=== PATIENT | male | born 1970 | race Caucasian/White ===

== ENCOUNTER 2016-10-11 16:56 | Observation (INO) | payer SELFPAY ==
[~2016-10-11] VITALS: Ht 180.3 cm; Wt 140.6 kg
--- NOTE | ~2016-10-11 | CATH ---
Cardiac Diagnostic + PCI Report Demographics Patient Name CRISTIANA Zhou Gender Male Date of 1970 Age 46 year(s) Patient Number [id number] Date of Study 10/12/2016 Visit Number [id number] Room Number G6[address] [place] [id number] Ht 180.34 cm Wt 140.6 kg Referring Purvi Reyesa Beronica CATALAN Primary Physician Physician Performing Jaimee Secondary Physician Physician Kenya ARREGUIN Diagnostic Jaimee Assisting Physician Physician Kenya ARREGUIN Interventional Jaimee Physician Gearman Physician Kenya ARREGUIN Findings and Conclusions Diagnostic Findings and Conclusion LVEDP 18 Stent in PDA does look hazy but with ASIF 3 flow.Stent in PDA jails the ostium of PLB allowing wires to cross but not balloons. Just beyond ostial PLB 70% with ASIF 3 flow.This is felt to be the culprit lesion.After several attempts including changing to AL 0.75 and adding guideliner was unsuccessful.Since distal flow was TIMI3 stopped procedure there. Diagnostic Recommendations PCI to PL Interventional Findings and Conclusion Attemped PCI. Only Luge wire crossed twice into PLB. The ostial PDA stent seem to have jailed the PLB ostium. Can not cross a 1.25mm balloon with AL 0.75 6F guide and guidliner. Procedure stopped due to radiation dose Interventional Recommendations Medication therapy Procedure Description The patient was brought to the diagnostic cardiac catheterization-EP laboratory in the fasting, non-sedated state. Informed consent was obtained in the written and verbal form after the risks and benefits were explained. The patient had no further questions and agreed to proceed. The planned puncture-incision site(s) were shaved and prepped with ChloraPrep and draped in the usual sterile manner. Conscious sedation, supplemental oxygen, and pain control medications were delivered by a registered nurse under physician guidance. Surface ECG rhythm, blood pressure measurement, and pulse oximetry were monitored throughout the procedure. Arterial access. The access site was infiltrated with lidocaine. The vessel was entered with the Seldinger technique. A sheath was advanced into the vessel and used for catheter placement. Selective left coronary angiography. A catheter was advanced into the left coronary vessel ostium under Fluoroscopic guidance. Contrast was injected by hand. Images were obtained in multiple projections. Selective right coronary angiography. A catheter was advanced into the right coronary vessel ostium under fluoroscopic guidance. Contrast was injected by hand. Images were obtained in multiple projections. Left heart catheterization. A catheter was advanced across the aortic valve to the left ventricle under fluoroscopic guidance. Resting hemodynamics were obtained. Angioplasty: A guiding catheter was used to intubate the vessel. A 0.14 wire was used to cross the lesion. A balloon was unable to cross the lesion. Arterial artery hemostasis was achieved. The patient was transferred to a regular nursing floor via cart accompanied by a nurse. The patient left the laboratory in stable condition. Diagnostic Cath Status: Urgent Interventional Cath Status: Urgent Procedure Procedure Type Diagnostic procedure:Angiography:, Coronary Angios w/[facility] PCI procedure:PTCA:, Attempted Indications: Non-ST elevation WV. The procedure was explained in detail to the patient. Risks, complications and alternative treatments were reviewed. Written consent was obtained. Medications Reviewed with Patient prior to Procedure. Angiographic Findings Dominance: Right Cardiac Arteries and Lesion Findings LMCA: Moderate ectasia LAD: LAD proximal moderate ectasia. type 3 LAD, Diag1 and 2 have mild diffuse disease. LCx: Mid diffuse disease RCA: RCA dominant, moderately ectasia proximially with multiple 30-40% lesions though out. PL moderate ectasia with ostial proximal lesion 70%. PDA ostial/proximal mild lesion stent seems to be patent.There is a previous stent on R PDA Ostial showing wide patency. Lesion on 1st RPL: Ostial.70% stenosis reduced to 70%. Pre procedure ASIF III flow was noted. Post Procedure ASIF III flow was present. The guidewire cross was successful.A good run off was present.The lesion was diagnosed as a high risk lesion.Culprit lesion.Bifurcation lesion. Devices used - Luge Wire .014 x 182. Number of passes: 1. - Whisper Wire .014 x 190. Number of passes: 1. - Fielder XT 190 cm. Number of passes: 1. - Luge Wire .014 x 182. Number of passes: 1. Lesion on Mid RCA: 40% stenosis . Lesion on Prox RCA: Ostial.40% stenosis . Ramus: Mild diffuse disease Coronary Tree Procedure Data Procedure Date Date: 10/12/2016Start: 10:23 AMEnd: 12:08 PM Entry Locations - Retrograde Percutaneous access was performed through the Right Radial artery (Primary location). A 6 Fr sheath was inserted. Unsuccessful closure attempt was performed using: an R band. Hemostasis was successfully obtained using Mechanical Compression. Closure Comments: R) band applied by Molly. 10 ml of air in band. Procedure Medications Order and Administration + + + + + !Time !Medication !Dosage !Route ! + + + + + !10/12/2016 !Fentanyl !50 mcg !I.V. ! !10:20 AM ! ! ! ! + + + + + 10/12/2016 !Versed !1 mg !I.V. ! !10:23 AM ! ! ! ! + + + + 10/12/2016 !AMK Radial Cocktail: Nitroglycerin ! !I.A. ! !10:28 AM !100mcg, Verapamil 3 mg, Lidocaine ! ! ! ! !40mg (ACC_3) ! ! ! + + + + + !10/12/2016 !Oxygen !2 l/min !NC ! !10:32 AM ! ! ! ! + + + + + 10/12/2016 !Versed !1 mg !I.V. ! !10:33 AM ! ! ! ! + + + + 10/12/2016 !Heparin (ACC_3) !5000 units !I.V. bolus! !10:59 AM ! ! ! ! + + + + 10/12/2016 !Fentanyl !50 mcg !I.V. ! !11:09 AM ! ! ! ! + + + + 10/12/2016 !Heparin (ACC_3) !2000 units !I.V. bolus! !11:12 AM ! ! ! ! + + + + 10/12/2016 !Integrilin (ACC_7) !22.6 mg !I.V. bolus! !11:14 AM ! ! ! ! + + + + 10/12/2016 !Versed !1 mg !I.V. ! !11:20 AM ! ! ! ! + + + + 10/12/2016 !Fentanyl !25 mcg !I.V. ! !11:25 AM ! ! ! ! + + + + 10/12/2016 !Integrilin (ACC_7) !22.6 mg !I.V. bolus! !11:26 AM ! ! ! ! + + + + + 10/12/2016 !Fentanyl !50 mcg !I.V. ! !11:30 AM ! ! ! ! + + + + + !10/12/2016 !Versed !1 mg !I.V. ! !11:35 AM ! ! ! ! + + + + + !10/12/2016 !Versed !1 mg !I.V. ! !11:36 AM ! ! ! ! + + + + + !10/12/2016 !Oxygen !4 l/min !NC ! !11:38 AM ! ! ! ! + + + + + !10/12/2016 !Heparin (ACC_3) ! !I.V. drip ! !11:43 AM ! ! ! ! + + + + + !10/12/2016 !Fentanyl !25 mcg !I.V. ! !11:44 AM ! ! ! ! + + + + + !10/12/2016 !Fentanyl !25 mcg !I.V. ! !11:46 AM ! ! ! ! + + + + + !10/12/2016 !Integrilin (ACC_7) !2 !I.V. drip ! !12:01 PM ! !mcg/kg/min ! ! + + + + + Devices Used - A6 Fr. BS JR 4 Diag. Catheterwas used for:Right coronary angiography. - A6 Fr. BS JL 3.5 Diag. Catheterwas used for:Left coronary angiography. - A6 Fr. RBU 4.0 Guide Catheterwas used for:RCA Intervention. - A6 Fr. AL .75 JJ Guide Catheterwas used for:RCA Intervention. - A6 Fr. Guidlinerwas used for:RCA Intervention. Contrast Material - Isovue [id number] ml Fluoroscopy Time: Diagnostic: 37:48 minutes. Total: 37:48 minutes. Fluoroscopy Dose: Diagnostic: 5935 mGy. Total: 5935 mGy. Estimated Blood Loss: 50 ml. Additional [facility] PCI Information PCI Indication:PCI for high risk Non-STEMI or unstable angina. Medical History Performed Procedures and Imaging Results - No [facility] stress or imaging studies were performed. Allergies - No known allergies. Risk Factors The patient risk factors include:prior PCI on 05/10/2016;obesity, physical activity, treated hypercholesterolemia, treated hypertension, family history of premature CAD, last creatinine: 1.2 mg/dl, creatinine clearance: 151.34 ml/min, dyslipidemia, Current/Recent(w/in 1 year) tobacco use and prior WV . Admission Data Admission Date: 10/11/2016 Admission Time: 04:56 PM Admit Source: Transfer [facility] facility Insurance Payors: None. Admission Medications + +------+------+ + + + + !Medication !Dosage!Times !Last !Last !Administered !Comments ! ! ! !Per !Delivery !Delivery ! ! ! ! ! !Day !Date !Time ! ! ! + +------+------+ + + + + !Aspirin ! ! ! ! ! ! ! !(any) ! ! ! ! ! ! ! + +------+------+ + + + + !ROBERTO ! ! ! ! ! ! ! !Inhibitor ! ! ! ! ! ! ! !(any) ! ! ! ! ! ! ! + +------+------+ + + + + !Beta Manoj! ! ! ! ! ! ! !(any) ! ! ! ! ! ! ! + +------+------+ + + + + !Clopidogrel ! ! ! ! ! ! ! + +------+------+ + + + + !Ticagrelor ! ! ! ! ! ! ! + +------+------+ + + + + Clinical Evaluation Leading to Procedure - The patient's CAD presentation was assessed as: Non-STEMI. - The patient's anginal syndrome during the past two weeks was assessed as: Class IV according to the [place] Cardiovascular Society Classification System (CCS). Anti-anginal medications were prescribed during the past two weeks. The medications are: Beta Blockers and Other. [facility] . Ejection Fraction - 05/01/2019 - Method: Echocardiography. EF%: 50. Hemodynamics Condition: Rest O2 Consumption: Estimated: 305.39Heart Rate: 70 bpm Pressures (mmHg) +-----+ + !Site !Pressure ! +-----+ + !LV !124/12 ,15 ! +-----+ + !LV !173/8 ,165 ! +-----+ + !LV !145/7 ,18 ! +-----+ + !AO !134/91 (112) ! +-----+ + !LV !133/12 ,28 ! +-----+ + !AO !121/83 (101) ! +-----+ + Valve Gradients and Areas + +---------+---------+---------+ +---------+ + !Valve !Peak !Mean !Area !Index !Flow !Source ! + +---------+---------+---------+ +---------+ + !Aortic !0 !0 ! ! ! ! ! + +---------+---------+---------+ +---------+ + !Aortic !0 !0 ! ! ! ! ! + +---------+---------+---------+ +---------+ + Shunts Oxygen Values O2 Capacity 205.36 O2 Consumption 305.39 Discharge Data Discharge Date: 10/12/2016 Hospital Status: Inpatient Signatures dtt: Kenya Hermosillo dtd: 10/12/16 1023 Physician Self Edit
--- NOTE | ~2016-10-11 | CON ---
PATIENT'S NAME: SRIKANTH ZENDEJAS [facility] AGE: 46 Y [address] ROOM: [address] [address] [facility] ADMIT DATE: 10/11/2016 Consultation DISCHARGE DATE: FAMILY PHYSICIAN: JASMINA MOHAMUD PA-C ATTENDING PHYSICIAN: Kenya Hermosillo HISTORY OF PRESENT ILLNESS: Srikanth Zendejas is a 46-year-old male patient from [place], admitted with a [id number] elevation MO. He was working when the pain started and radiating down to the left arm. He went home 10 minutes later and took a nitroglycerin and eventually went to the hospital in another 10 minutes or so. The nitroglycerin seemed to relieve the pain to some extent, and the morphine sulfate given in the hospital seemed to completely get rid of the pain and he is currently pain-free. His troponin, however, was elevated and his EKG is negative for acute changes. The patient has history of coronary artery disease and stenting of his PDA in April 2016. He has gone home and done reasonably well, and he has been staying with his medications and stopped completely smoking as well. He is in functional class II with no paroxysmal nocturnal dyspnea or orthopnea. He denies lightheadedness, dizziness, syncope, or presyncope. He has noticed some ankle swelling, and his cholesterol is known to be elevated. There is a family history of premature coronary artery disease. MEDICATIONS: 1. Tramadol 50 mg 1-2 q.i.d. p.r.n. 2. Carvedilol 6.25 b.i.d. 3. Atorvastatin 80 mg a day. 4. Clopidogrel 75 mg a day. 5. Lisinopril 25 mg twice a day. 6. Aspirin 81 mg a day. ALLERGIES: NO KNOWN DRUG ALLERGIES. PAST MEDICAL HISTORY: 1. Right groin abscess after his cardiac catheterization long time back. 2. Fracture of second lumbar vertebrae 15 years ago. 3. Gout. SOCIAL HISTORY: The patient is . He denies abusing alcohol. He has not smoked since his last hospital procedure in April 2016. He denies recreational drug use. His appetite and weight are stable. Sleep is fair. PATIENT'S NAME: SRIKANTH ZENDEJAS [facility] AGE: 46 Y [address] ROOM: [place] [address] LOCATION: [facility]U ADMIT DATE: 10/11/2016 Consultation DISCHARGE DATE: FAMILY PHYSICIAN: JASMINA MOHAMUD PA-C ATTENDING PHYSICIAN: Kenya Hermosillo FAMILY HISTORY: Positive for premature coronary artery disease in his brother, who had an MO at the age of 38. REVIEW OF SYSTEMS: 1. Migraine headaches. 2. Corrective lenses. 3. Polyps in the colon. PHYSICAL EXAMINATION: VITAL SIGNS: His blood pressure is in the 140s/80s, heart rate is 70s and regular, respiration is 18, and afebrile. HEENT: Normal. NECK: Supple with no JVD, thyromegaly, lymphadenopathy, or carotid bruit. HEART: PMI is not well located. First and second heart sounds are regular. There are no added sounds or murmurs. CHEST: Clear to auscultation. ABDOMEN: Soft and nontender. Bowel sounds are normally present. EXTREMITIES: Reveal no edema. ASSESSMENT: A 46-year-old male patient with known coronary artery disease, status post percutaneous coronary intervention to the ostium of the PDA. He had a 46% lesion in his PLB, which was ASIF-3 governed. He would probably need those lesions evaluated again with a cardiac catheterization. Given his close proximity to the last stent placement, we will proceed ahead and get has some additional information including his liver tests, LFTs, CPK, homocystine level, or any unusual activities. RECOMMENDATION: He will be kept n.p.o. after midnight and do a cardiac catheterization in the morning. Again, I appreciate this opportunity to participate in the care of Mr. Zendejas. MD CATHI LIGHT/isaak PATIENT'S NAME: SRIKANTH ZENDEJAS [facility] AGE: 46 Y [address] ROOM: [place] [address] LOCATION: [facility]PCU ADMIT DATE: 10/11/2016 Consultation DISCHARGE DATE: FAMILY PHYSICIAN: JASMINA MOHAMUD PA-C ATTENDING PHYSICIAN: Kenya Hermosillo /[id number] d: 10/11/162315 t: 10/19/16 1030, CONSULTATION REPORT
[~2016-10-11 16:56] MED LIST: ADVIL200 MG; ASPIRIN BUFFER325 MG PO; CATAPRES0.1 MG PO; COREG6.25 MG PO; HYDROCODON-ACE1 EAC4 PO; LIPITOR80 MG PO; LISINOPRIL-HCT1 EAC2 PO; LOPRESSOR25 MG PO; LOPRESSOR50 MG; NITROSTAT0.4 MG SL; NORVASC10 MG PO; PLAVIX75 MG PO; TYLENOL325 MG PO
--- NOTE | 2016-10-11 18:01 | NUR ---
PT ARRIVED VIA AMBULANCE FROM [facility]. PT STATES THAT HE WAS AT WORK . HE HAD BEEN USING A SLEDGE HAMMER TO BREAK UP OLD CONCRETE FOR 5 MINUTES WHEN CHEST PAIN BEGAN. PT UP AD HEIDY. DENIES ANY CHEST PAIN. HR 84, BP 150/96, RR 12, TEMP 98.2, SATS 95% ON RA.
[2016-10-11] MEDS ORDERED: ULTRAM50 MG PO (18:04)
[2016-10-12 02:41] LABS: ALBUMIN 3.5 gm/dL (3.5-5.0); ALK PHOS 82 IU/L (33-138); ALT 122 IU/L (12-78); AST 85 IU/L (10-40); CPK 216 IU/L (35-332); TOTAL BILIRUBIN 0.3 mg/dL (0.0-1.5); TOTAL PROTEIN 6.8 g/dL (6.0-8.4)
--- NOTE | 2016-10-12 04:28 | NUR ---
Significant Event: A/ 0 X 3 AMBULATES STAND BY ASSIST. SBP 130-160'S, HR 70 TO 80'S. AFEBRILE. SATS MID 90'S ON RA. HE HAS BECOME SOMEWHAT AGITATED AND IMPATIENT WITH CARES AND JUST WANTS TO BE LEFT ALONE, EVEN WITH CLUSTERING CARES TO MINIMIZE INTERUPTIONS. STARTING TO BECOME SOMEWHAT NON-COMPLIANT, HAD TO TAKE 02 SAT MONITOR OFF. HEPARIN INFUSING AT 1500 UNITS/HR NEXT PTT-HP 0900. NITRO AT 5 MCG/MIN. HAS REMAINED FREE OF CHEST PAIN THIS EVEING. TYLENOL AND ULTRAM GIVEN FOR BACK PAIN AND HEADACHE. NPO SINCE MIDNIGHT. WILL HAVE CATH SOMETIME THIS AM. Follow up:
[2016-10-12 06:57] LABS: CREATININE 1.2 mg/dL (0.6-1.3)
[2016-10-12 06:59] LABS: ESTIMATED GFR (MDRD EQUATION) > 60
[2016-10-12] MEDS ORDERED: CATAPRES0.1 MG PO (09:32)
--- NOTE | 2016-10-12 15:59 | NUR ---
Introduced self and role of care management to pt. He is self pay and he states he is hoping to get medicaid shortly. He lives in [place] and planning home tomorrow. I did give him [employer] form to fill out and he also has samples for Brilinta as well as a free 30 day card. Also a financial application at bedside.
[2016-10-12 16:19] LABS: BASOPHIL % 0.3 %; EOSINOPHIL # 0.3 K/uL (0.0-0.5); EOSINOPHIL % 2.1 %; HEMATOCRIT 43.9 % (37.0-53.0); IMMATURE GRANULOCYTE # 0.1 K/uL (0.0-0.3); IMMATURE GRANULOCYTE % 0.4 %; LYMPHOCYTE # 1.5 K/uL (0.8-4.0); LYMPHOCYTE % 11.7 %; MCH 28.6 pg (27.0-34.0); MCHC 34.2 gm/dL (32.0-36.5); MCV 83.8 fl (83.0-98.0); MONOCYTE % 7.7 %; MPV 9.8 fl (9.4-12.4); NEUTROPHIL % 77.8 %; NRBC % 0 /100WBC (0-0.00); RBC 5.24 M/uL (4.00-6.00); RDW-CV 13.2 % (11.9-14.6); WBC 12.8 K/uL (4.0-11.0)
[2016-10-12 16:39] LABS: PLATELET COUNT 273 K/uL (150-450)
[2016-10-12] MEDS ORDERED: ASPIRIN LO-DOSE81 MG PO (17:16)
[2016-10-12] MEDS ORDERED: NICODERM CQ1 EAC1 TRANS (17:17)
[2016-10-12] MEDS ORDERED: BRILINTA90 MG PO (17:23)
[2016-10-12] MEDS ORDERED: LISINOPRIL-HCT1 EAC1 PO (17:24)
[2016-10-12] MEDS ORDERED: COREG6.25 MG PO (17:25)
[2016-10-12] MEDS ORDERED: ISORDIL30 MG PO (17:26)
[2016-10-12] MEDS ORDERED: CRESTOR40 MG PO (17:28)
[2016-10-12] MEDS ORDERED: ZETIA10 MG PO (17:29)
--- NOTE | 2016-10-12 19:17 | NUR ---
PATIENT DISMISSED TO HOME W/ PER PRIVATE AUTO. NURSE AID TRANSFERED PATIENT TO CAR PER W/C. REVIEWED DISMISSAL INSTRUCTIONS WITH PATIENT, INCLUDING RADIAL HEART CATH SITE CARE INSTRUCTIONS, PATIENT VERBALIZED UNDERSTANDING. GAVE PATIENT EDUCATION ON SMOKING CESSATION AND NEW MEDICATIONS. PATIENT STATES HAS NO FURTHER QUESTIONS. PATIENT HAD BRILLENTA SAMPLES AND DISCOUNT CARD AT TIME OF DISMISSAL.
== END 2016-10-12 18:10 | disposition disaster alternative care site (69) ==
LOC: GPCU 16:56
PROVIDERS: ADMIT Internal Medicine Interventional Cardiology
PROC: 4A023N8 Measurement of Cardiac Sampling and Pressure, Bilateral, Percutaneous Approach (ICD-10-PCS; principal; 2016-10-12)
PROC: B211YZZ Fluoroscopy of Multiple Coronary Arteries using Other Contrast (ICD-10-PCS; 2016-10-12)
DX: I21.4 Non-ST elevation (NSTEMI) myocardial infarction (principal); I25.10 Atherosclerotic heart disease of native coronary artery without angina pectoris; I10 Essential (primary) hypertension; E78.5 Hyperlipidemia, unspecified; E66.9 Obesity, unspecified; F17.220 Nicotine dependence, chewing tobacco, uncomplicated; Z68.41 Body mass index [BMI] 40.0-44.9, adult; Z98.890 Other specified postprocedural states; Z79.82 Long term (current) use of aspirin; Z79.899 Other long term (current) drug therapy; Z79.891 Long term (current) use of opiate analgesic
CPT/HCPCS: C1725; C1769; C1887; C1894; G0378; J1327; J1644; J2250; J3010; J7030

== ENCOUNTER 2016-11-06 16:59 | Observation (INO) | payer SELFPAY ==
[~2016-11-06] VITALS: Ht 180.3 cm; Wt 141.8 kg
--- NOTE | ~2016-11-06 | DS ---
PATIENT'S NAME: BERE ZENDEJAS [facility] AGE: 46 Y [address] ROOM: [address] [place], [place] [address] LOCATION: GPCU ADMIT DATE: 11/06/2016 Discharge Summary DISCHARGE DATE: 11/09/2016 FAMILY PHYSICIAN: TERRY PALACIOS PA-C ATTENDING PHYSICIAN: Kenya Hermosillo INDICATION: 1. Non ST-segment elevation MN secondary to lesions in the ostium of the posterolateral branch which was partly jailed by this ostial stent to the PDA which had in-stent restenoses as well. 2. Coronary artery disease status post PCI to the ostium of the PDA approximately 6 months ago for non ST-segment elevation MN. 3. The patient presented again about 3 weeks ago with another episode of chest pain and non ST-segment elevation MN and an attempt at stenting the bifurcation of the PDA and posterolateral branch failed because of the partial jailing of the posterolateral branch ostium by the PDA stent. 4. Severe LVH. His septum measures 2.1 and his posterior wall measures 1.8. There is no obstruction at the LVOT. 5. The patient does have additional distal RCA lesions which are fairly severe but these are relatively small vessels in the posterolateral branch. 6. Moderately increased BMI. 7. Severe hypertension. 8. Gout. 9. Polyps in his colon. 10. Migraine headaches. 11. Tinnitus. 12. History of sudden cardiac in his brother at age of 38. 13. No ventricular arrhythmias noted so thus far. HOME MEDICATIONS: 1. Nitroglycerin 0.4 mg sublingual p.r.n. chest pain. 2. Tramadol 50 mg to 100 mg 4 times a day p.r.n. 3. Aspirin 81 mg a day. 4. Brilinta 90 b.i.d. 5. Lisinopril/hydrochlorothiazide 20/12.5 twice a day. 6. Carvedilol 9.375 mg b.i.d. 7. Isosorbide dinitrate 30 mg a day. 8. Rosuvastatin 40 mg a day. 9. Zetia 10 mg a day. DISCHARGE RECOMMENDATIONS: 1. Low-fat, low-calorie weight losing diet. 2. Consider slowly losing weight at a rate of 0.5 pounds per week. 3. Activity as tolerated for now. PATIENT'S NAME: BERE ZENDEJAS [facility] AGE: 46 Y [address] ROOM: [address] [place], [place] [address] LOCATION: GPCU ADMIT DATE: 11/06/2016 Discharge Summary DISCHARGE DATE: 11/09/2016 FAMILY PHYSICIAN: TERRY PALACIOS PA-C ATTENDING PHYSICIAN: Kenya Hermosillo 4. Groin precautions. 5. Nitroglycerin precautions. 6. We will try to get him into cardiac rehab when I see him in 2 weeks in [place] for followup. COURSE IN HOSPITAL: The patient developed chest pressure at home and he went to the emergency room in [place] from where he was transferred out here. After he got here, he remained pain-free. His enzymes were elevated with troponin reaching up to 0.7 range. He did have a stress test to see the presence of ischemia to see if he has ischemia in his posterolateral branch and PDA territory or not. He only got his heart rate up to 75% maximum predicted. His EF was mildly reduced at about 45% and he had inferolateral wall ischemia including part of the PDA territory. The patient underwent catheterization again this time with some difficulty. Balloons and stents could be crossed across into the right posterolateral branch and he had 2.75 x 16 mm stent and a 3.0 x 12 mm stent in the post lateral branch were placed almost in a kissing stent fashion and deployed with good results. The patient remained pain free after that and he is being discharged to be followed up as an outpatient. I did have a conversation with Dr. Roberson who is an greens planter in [facility] to see if there is anything else we need to be doing because of the presence of severe hypertrophy as well as the scar he has had from the previous MN and possibly now still some ischemia in the territory of the subbranches of the posterolateral branch. In the absence of any significant arrhythmias, he did not think that we need to be doing anything different. His brother's sudden cardiac , he is worrisome given his hypertrophy cardiomyopathy. I have asked him to try to get hold of his autopsy report. When I see him in [place], I would try to get the 48-hour Holter monitor to see if he has any ventricular arrhythmias at home. When he was in the hospital, he had a very few single PVCs, if any. He did not have atrial fibrillation either. A cardiac MRA at about a month's time will be appropriate and hopefully by then, we will have all the increase of information that we would probably need to make any decision regarding placement of defibrillator. Given the multiple lesions in his distal RCA and posterolateral branch, I am inclined to think that repeat cardiac catheterization about 2-3 months to see if he is having reached in-stent restenoses and also to see if anything can be done about the smaller distal posterolateral branches. PATIENT'S NAME: BERE ZENDEJAS [facility] AGE: 46 Y [address] ROOM: [place] [address] [facility] AD[facility] DATE: 11/06/2016 Discharge Summary DISCHARGE DATE: 11/09/2016 FAMILY PHYSICIAN: TERRY PALACIOS PA-C ATTENDING PHYSICIAN: Kenya Hermosillo MD CATHI LIGHT/isaak /[id number] d: 11/10/16 1520 t: 11/14/16 1225, DISCHARGE SUMMARY
--- NOTE | ~2016-11-06 | HP ---
PATIENT'S NAME: BERE ZENDEJAS [facility] AGE: 46 Y [address] ROOM: G6306 [place], [place] [address] LOCATION: GPCU ADMIT DATE: 11/06/2016 History & Physical DISCHARGE DATE: FAMILY PHYSICIAN: PHYSICIAN, UNKNOWN ATTENDING PHYSICIAN: Kenya Hermosillo DATE OF SERVICE: 11/06/2016 HISTORY OF PRESENT ILLNESS: Mr. Zendejas is a 46-year-old male patient who initially was hospitalized in April of 2016 with a ual-KD-cqkikwb elevation OR and underwent ostial PDA stenting using a drug-eluting stent. He has been on aspirin, Plavix, and beta blockers and high-intensity statin therapy. Unfortunately, he has also chews tobacco and has trouble with hypertension, elevated lipids, and moderate obesity. His non-STEMI recurred during the first part of October of 2016, and at that time, the infarct-related vessel was felt to be the posterolateral branch beyond the ostium. Unfortunately, the stents that he had in PDA ostium seemed to care home the ostium of the posterolateral branch when they tried to go past that. Wires were able to go across though. His pain had resolved by the time I was trying to get the stent place, so I decided to do medical treatment. He was discharged home with instruction to completely stop chewing tobacco and do nocturnal trend oximetry as an outpatient. He was seen on 10/24/2016 in [facility]. At that time, he seemed to be doing well except for an area in the chest where there are periods of sharp jabbing chest pains. He had also been noticing some tinnitus. The chest pains lasted about 10 to 15 seconds. There were unlike his heart pains. In addition, he has been noticing some myalgia like pains especially of the joints. He has blurred vision and episodes of dizziness on getting up, and his blood pressure was doing reasonably well at 143/101. He did well after that and last weekend he was very tired and sleepy. He started to have some discomfort in his chest, some of that was like a heavy pressure. The pressure was about 2 to 4, somewhat in that range for almost like 24-hour period and then it seemed to get worse today and so he went to [facility] where his EKG was unremarkable, but his troponins were slightly elevated, so he was transferred over. Because of his problems with moderate diffuse disease in his vessels, it is difficult to figure out the lesion which is causing his symptoms. So, I had suggested doing a stress test first before trying to go back and work on the vessel that he is having trouble with. He has not gone back to work. He denies having any shortness of breath. There is no lightheadedness, dizziness, syncope, presyncope, palpitations, or ankle swelling. The patient has no history of rheumatic fever or heart murmur. PATIENT'S NAME: BERE ZENDEJAS [facility] AGE: 46 Y [address] ROOM: [place] [address] [facility] ADMIT DATE: 11/06/2016 History & Physical DISCHARGE DATE: FAMILY PHYSICIAN: PHYSICIAN, UNKNOWN ATTENDING PHYSICIAN: Kenya Hermosillo MEDICATIONS: Current list of medications: 1. Crestor 40 mg a day. 2. CoQ10, 200 mg a day. 3. Tramadol 50 mg t.i.d. p.r.n. 4. Zetia 10 mg a day. 5. Coreg 6.25 b.i.d. 6. Brilinta 90 b.i.d. 7. Aspirin 81 mg a day. 8. Lisinopril/hydrochlorothiazide 20/25 once a day. 9. Clonidine 0.1 mg p.r.n. 10. Norvasc 10 mg a day. ALLERGIES: NO KNOWN DRUG ALLERGIES. PAST MEDICAL HISTORY: 1. Right groin abscess after his cardiac catheterization. 2. Fracture of the second lumbar vertebra 15 years ago. 3. Gout. 4. Moderate obesity. SOCIAL HISTORY: The patient is . He denies abusing alcohol. His appetite and weight are stable. Sleep is fair. FAMILY HISTORY: Positive for premature coronary artery disease in his brother at age of 38. REVIEW OF SYSTEMS: Ten-point review of systems revealed the following positives. 1. History of polyps in his colon. 2. Corrective lenses. 3. Migraine headaches. 4. Tinnitus. 5. Intermittent blurred vision as mentioned earlier. PHYSICAL EXAMINATION: VITAL SIGNS: On examination, his blood pressure is 140s over 70s, heart rate is in the 70s and regular, respirations are 18, afebrile. HEENT: Normal. NECK: Supple with no JVD, thyromegaly, lymphadenopathy, or carotid bruit. HEART: PMI is not well located. First and second heart sounds are regular. There are no added sounds or murmurs. CHEST: Clear to auscultation. PATIENT'S NAME: BERE ZENDEJAS [facility] AGE: 46 Y [address] ROOM: [place] [address] [facility] ADMIT DATE: 11/06/2016 History & Physical DISCHARGE DATE: FAMILY PHYSICIAN: PHYSICIAN, UNKNOWN ATTENDING PHYSICIAN: Kenya Hermosillo ABDOMEN: Obese, soft. Bowel sounds are normally present. EXTREMITIES: Reveal no edema. CENTRAL NERVOUS SYSTEM: Intact. ASSESSMENT: A 46-year-old male patient with recurrence of his chest pains. It is possible that he is having another lrg-CJ-vdzwmav elevation OR. Currently, he is almost pain-free. RECOMMENDATIONS: We will keep him on IV nitroglycerin and IV heparin and leave him on the aspirin and Brilinta. Tomorrow morning, we will discontinue the IV nitroglycerin and do a stress test to see if possibly we can delineate the site of his ischemia before attempting intervention again. Again, I appreciate this opportunity to participate in the care of Mr. Zendejas. MD CATHI LIGHT/isaak /[id number] D: [id number] T: [id number] HISTORY & PHYSICAL
--- NOTE | ~2016-11-06 | ECHO ---
Transthoracic Echocardiography Report (TTE) Demographics Patient Name BERE ZENDEJAS Date of Study 11/07/2016 Patient Number [id number] Visit Number [id number] Date of 1970 Room Number G6306 Gender Male Number Age 46 year(s) Referring Electrician [employer] Anoop RVT, RDCS Physician Radha Null Physician Interpreting Jaimee Zambrano MD Car Rental Clerk Physician Supervising Ordering Jaimee Zambrano MD, MD/MLP Physician Nurse Stress Computer Forensic Examiner Conclusions Contractility Score Summary Normal Left Ventricular contractility was noted. Summary Technically difficult exam due to patient's body habitus. Definity 2 ml was administered. The estimated left ventricular ejection fraction is 45-50%. Severe concentric left ventricular hypertrophy.Mild inferior hypokinesia. Mild to moderate mitral regurgitation by color Doppler. Procedure Type of Study TTE procedure:M-Mode, Doppler , Color Doppler, Contrast study, Echo with Contrast. Procedure Date Date: 11/07/2016 Start: 04:33 PM Study Location: Inpatient Portable Technical Quality: Limited visualization Indications:Chest pain. Additional Indications:recurrence nstemi Appropriate Use Criteria: 9 Patient Status: LUZMARIA Contrast Medium: Definity. Amount - 2 ml HR: 69 bpm BP: 138/80 mmHg Allergies - No known allergies. M-Mode/2D Measurements LV Diastolic Dimension: 4.88 cm LV Systolic Dimension: 3.31 cm LV Septum Diastolic: 2.4 cm LV PW Diastolic: 1.8 cm AO Root Dimension: 2.8 cm Cardiac Output: 6.82 l/min AV Cusp Separation: 2.4 cm RV Diastolic Dimension: 2.64 cm LA volume: 66 ml LVOT: 2.3 cm RV Base: 2.88 cm LVOT VTI: 23.8 cm RV Mid: 1.91 cm LV Stroke volume: 98.83 ml TAPSE: 2.92 cm TDI-S': 13.7 cm/s Doppler Measurements AV Peak Velocity: 1.16 m/s MV Peak E-Wave: 0.66 m/s AV Peak Gradient: 5.38 mmHg MV Peak A-Wave: 0.69 m/s AV Mean Gradient: 3 mmHg MV E/A Ratio: 0.96 LVOT Peak Velocity: 0.88 m/s MV P1/2t: 61 msec TR Gradient:8.88 mmHg PV Peak Velocity: 0.91 m/s Estimated RAP:3 mmHg PV Peak Gradient: 3.28 mmHg Estimated RVSP: 12 mmHg Estimated PASP: 11.88 mmHg E' Septal Velocity: 0.06 m/s A' Septal Velocity: 0.11 m/s E' Lateral Velocity: 0.08 m/s A' Lateral Velocity: 0.1 m/s Findings Left Ventricle Severe concentric left ventricular hypertrophy. Diastolic assessment reveals Grade II pseudonormal diastolic function. Right Ventricle Normal right ventricular size and function. Left Atrium Normal left atrial size. Right Atrium Normal right atrial size. Mitral Valve Mild mitral annular calcification. Moderate mitral regurgitation by color Doppler. Aortic Valve The aortic valve is mildly sclerotic. Tricuspid Valve Trivial tricuspid regurgitation by color Doppler. Pulmonic Valve Normal pulmonic valve structure and function. Pericardial Effusion Epicardial fat pad noted. Miscellaneous Visualized portions of the aortic root and ascending aorta appear normal in size. Pleural Effusion No evidence of pleural effusion. Contractility Score LV regional wall motion:(0-Non visualized 1-Normal 2-Hypokinesis 3-Akinesis 4-Dyskinesis 5-Aneurysm) Signature dtt: Kenya Hermosillo dtd: 11/07/16 1633 Physician Self Edit
--- NOTE | ~2016-11-06 | CATH ---
Cardiac Diagnostic + PCI Report Demographics Patient Name CRISTIANA Zhou Gender Male Date of 1970 Age 46 year(s) Patient Number [id number] Date of Study 11/08/2016 Visit Number [id number] Room Number G6306 [place] [id number] Ht 180.34 cm Wt 140.7 kg Referring Katia Camden Srinivasan Primary Physician Physician Rajni Hermosillo Secondary Physician Physician Kenya ARREGUIN Diagnostic Jaimee Assisting Physician Physician Kenya ARREGUIN Interventional Jaimee Physician Business Services Specialist Sales Physician Kenya ARREGUIN Findings and Conclusions Diagnostic Findings and Conclusion LV EDP 18 No gradient calcifications involving proximal stent in PDA. Diagnostic Recommendations PCI to PDA and PLB Interventional Findings and Conclusion PCI kissing stent to PLB and PDA. 3.0x12 to 15 neeraj 2.75x16 to 15 neeraj Interventional Recommendations DAPT for 1 year. Aggressive secondary preventative measures. Procedure Description The patient was brought to the diagnostic cardiac catheterization-EP laboratory in the fasting, non-sedated state. Informed consent was obtained in the written and verbal form after the risks and benefits were explained. The patient had no further questions and agreed to proceed. The planned puncture-incision site(s) were shaved and prepped with ChloraPrep and draped in the usual sterile manner. Conscious sedation, supplemental oxygen, and pain control medications were delivered by a registered nurse under physician guidance. Surface ECG rhythm, blood pressure measurement, and pulse oximetry were monitored throughout the procedure. Arterial access. The access site was infiltrated with lidocaine. The vessel was entered with the Seldinger technique. A sheath was advanced into the vessel and used for catheter placement. Selective left coronary angiography. A catheter was advanced into the left coronary vessel ostium under Fluoroscopic guidance. Contrast was injected by hand. Images were obtained in multiple projections. Selective right coronary angiography. A catheter was advanced into the right coronary vessel ostium under fluoroscopic guidance. Contrast was injected by hand. Images were obtained in multiple projections. Left heart catheterization. A catheter was advanced across the aortic valve to the left ventricle under fluoroscopic guidance. Resting hemodynamics were obtained. Angioplasty and Stent Placement: A guiding catheter was used to intubate the vessel. A 0.14 wire was then used to cross the lesion. A balloon catheter was placed across the lesion and inflated. The balloon catheter was then removed. A Drug Eluting Stent was placed and inflated. Post placement angiograms were performed. Arterial artery hemostasis was achieved. The patient was transferred to a regular nursing floor via cart accompanied by a nurse. The patient left the laboratory in stable condition. Diagnostic Cath Status: Urgent Interventional Cath Status: Urgent Procedure Procedure Type Diagnostic procedure:Angiography:, Coronary Angios w/[facility] PCI procedure:Drug Eluting Coronary Stent:, PDA, PL Indications: Chest pain. The procedure was explained in detail to the patient. Risks, complications and alternative treatments were reviewed. Written consent was obtained. Medications Reviewed with Patient prior to Procedure. Angiographic Findings Dominance: Right Cardiac Arteries and Lesion Findings LMCA: moderate ectasis. LAD: moderate ectasis proximally. Moderate diffuse disease. Diag. 1 and Diag. 2 moderate diffuse disease. LCx: moderate diffuse disease. OM 1 small. OM 2 larger. RCA: Dominant tortuous distal multiple 50%. PLR 1 small diffuse severe disease. Distal 70%. PDA Large ostial stent instent restenosis.There is a previous stent on R PDA Ostial. Lesion on 1st RPL: Ostial.70% stenosis 16 mm length reduced to 0%. Pre procedure ASIF 0 flow was noted. Post Procedure ASIF III flow was present. The guidewire cross was successful.A poor run off was present.The lesion was diagnosed as a moderate risk lesion.Culprit lesion. Devices used - Luge Wire .014 x 182. Number of passes: 1. - Emerge Balloon 2.0 x 15. 2 inflation(s) to a max pressure of: 14 neeraj. - Luge Wire .014 x 182. Number of passes: 1. - NC Emerge Balloon 2.75 x 8. 3 inflation(s) to a max pressure of: 7 neeraj. - Whisper Extra Support Wire .014 x 190. Number of passes: 1. - Fielder XT 190 cm. Number of passes: 1. - Customer Care Manager 200 .014 x 300. Number of passes: 1. - Emerge Balloon 2.5 x 15. 1 inflation(s) to a max pressure of: 6 neeraj. - Promus Premier 2.75 x 16 Stent. 1 inflation(s) to a max pressure of: 15 neeraj. Lesion on R PDA: Ostial.70% stenosis 12 mm length reduced to 0%. Pre procedure ASIF 0 flow was noted. Post Procedure ASIF III flow was present. The guidewire cross was successful.A poor run off was present.The lesion was diagnosed as a moderate risk lesion.Culprit lesion. The lesion was previously treated on 05/01/2016 with the following techniques: drug eluting stent. This is in-stentrestenosis. Devices used - Fielder XT 300 cm. Number of passes: 1. - Emerge Push Balloon 1.5 x 15. 1 inflation(s) to a max pressure of: 10 neeraj. - Emerge Balloon 2.0 x 15. 2 inflation(s) to a max pressure of: 14 neeraj. - Emerge Balloon 3.0 x 15. 2 inflation(s) to a max pressure of: 14 neeraj. - Promus Premier 3.0 x 12 Stent. 2 inflation(s) to a max pressure of: 15 neeraj. Lesion on Dist RCA: Distal subsection.50% stenosis . Coronary Tree Procedure Data Procedure Date Date: 11/08/2016Start: 04:15 PMEnd: 07:06 PM Entry Locations - Retrograde Percutaneous access was performed through the Right Femoral artery (Primary location). A 7 Fr sheath was inserted. Hemostasis was successfully obtained using Angio-Seal STS PLUS ([place]). Closure Comments: Deployed by Molly.. Procedure Medications Order and Administration + + + + + !Time !Medication !Dosage !Route ! + + + + + !11/08/2016 04:11 PM !Versed !1 mg !I.V. ! + + + + + !11/08/2016 04:11 PM !Fentanyl !50 mcg !I.V. ! + + + + 11/08/2016 04:15 PM !Oxygen !2 l/min !NC ! + + + + + !11/08/2016 04:28 PM !Heparin (ACC_3) !8000 units !I.V. bolus ! + + + + 11/08/2016 04:42 PM !Heparin (ACC_3) ! !I.V. bolus ! + + + + + 11/08/2016 05:00 PM !Fentanyl !25 mcg !I.V. ! + + + + + !11/08/2016 05:15 PM !Fentanyl !25 mcg !I.V. ! + + + + + !11/08/2016 05:17 PM !Heparin (ACC_3) !1000 units !I.V. bolus ! + + + + + !11/08/2016 05:23 PM !Versed !1 mg !I.V. ! + + + + + 11/08/2016 05:28 PM !Nitroglycerin !20 mcg/min !I.V. drip ! + + + + + !11/08/2016 05:34 PM !Nitroglycerin !25 mcg/min !I.V. drip ! + + + + + !11/08/2016 05:42 PM !Nitroglycerin ! !I.V. drip ! + + + + + 11/08/2016 05:37 PM !Dilaudid !1 mg !I.V. ! + + + + + !11/08/2016 05:52 PM !Heparin (ACC_3) !2000 units !I.V. bolus ! + + + + + 11/08/2016 06:06 PM !Dilaudid !1 mg !I.V. ! + + + + + !11/08/2016 06:37 PM !Aggrastat (Tirofiban) !3.55 mcg !I.V. bolus ! + + + + + !11/08/2016 06:48 PM !Aggrastat (Tirofiban) !0.15 mcg/kg/min !I.V. bolus ! + + + + + Devices Used - A6 Fr. BS JL 4 Diag. Catheterwas used for:Left coronary angiography. - A7 Fr. AL1 Guide Catheterwas used for:Right coronary angiography. - A7 Fr. JR 4 Guide Catheterwas used for:RCA Intervention. Contrast Material - Isovue [id number] ml Fluoroscopy Time: Diagnostic: 53:30 minutes. Total: 53:30 minutes. Fluoroscopy Dose: Diagnostic: 7800 mGy. Total: 7800 mGy. Estimated Blood Loss: 40 ml. Additional [facility] PCI Information PCI Indication:PCI for high risk Non-STEMI or unstable angina. Medical History Allergies - No known allergies. Risk Factors The patient risk factors include:prior PCI on 05/01/2016;obesity, treated hypercholesterolemia, treated hypertension, family history of premature CAD appeared at age 38, last creatinine: 1.1 mg/dl, creatinine clearance: 165.22 ml/min, dyslipidemia, former tobacco use and prior [facility] . Admission Data Admission Date: 11/06/2016 Admission Time: 04:59 PM Admit Source: Emergency department Insurance Payors: None. Admission Medications + +------+------+ + + + + !Medication !Dosage!Times !Last !Last !Administered !Comments ! ! ! !Per !Delivery !Delivery ! ! ! ! ! !Day !Date !Time ! ! ! + +------+------+ + + + + !ROBERTO ! ! ! ! !Yes ! ! !Inhibitor ! ! ! ! ! ! ! !(any) ! ! ! ! ! ! ! + +------+------+ + + + + !Aspirin ! ! ! ! !Yes ! ! !(any) ! ! ! ! ! ! ! + +------+------+ + + + + !Ticagrelor ! ! ! ! !Yes ! ! + +------+------+ + + + + !Statin (any)! ! ! ! !Yes ! ! + +------+------+ + + + + !Non-Statin ! ! ! ! !Yes ! ! !(any) ! ! ! ! ! ! ! + +------+------+ + + + + Clinical Evaluation Leading to Procedure Diagnosed on 11/08/2016 03:30 PM. - The patient's CAD presentation was assessed as: Non-STEMI.The symptom onset was first noted on 11/06/2016 07:00 AM(time was estimated). - The patient's anginal syndrome during the past two weeks was assessed as: Class IV according to the [place] Cardiovascular Society Classification System (CCS). Anti-anginal medications were prescribed during the past two weeks. The medications are: Long Acting Nitrates and Other. Hemodynamics Condition: Rest O2 Consumption: Estimated: 316.15Heart Rate: 81 bpm Pressures (mmHg) +-----+ + !Site !Pressure ! +-----+ + !AO !172/124 (145) ! +-----+ + !LV !146/9 ,15 ! +-----+ + !LV !142/10 ,16 ! +-----+ + Shunts Oxygen Values O2 Capacity 208.08 O2 Consumption 316.15 Discharge Data Discharge Date: 11/09/2016 Hospital Status: Inpatient Signatures dtt: eKnya Hermosillo dtd: 11/08/16 1615 Physician Self Edit
--- NOTE | ~2016-11-06 | ESTC ---
Cardiac Perfusion Imaging Demographics Patient Name CRISTIANA Zhou Gender Male Patient Number [id number] Race Visit Number [id number] [place] [id number] Room Number G6306 Accession Number [id number] Height Date of 1970 Weight Age 46 year(s) BSA Referring Physician Jaimee CLARK MD Interpreting Jaimee Zambrano Date of study 11/07/2016 Physician Supervising /MLP Jaimee DE JESUS Technologist Letitia Byrd MD Ordering Physician Jaimee Zambrano Stress landscape technician Stress ECG Reading Jaimee Zambrano Nurse Tlai Byrne Physician RN Chicho Malone RN Procedure Procedure Type: Nuclear Stress Test:Exercise, Cardiolite Stress Test Procedure Start time: 11/07/2016 11:02 Indications: Chest pain. Risk Factors The patient risk factors include:prior PCI;obesity, former tobacco use, hypercholesterolemia, hypertension, dyslipidemia and prior [place] . Conclusions Summary Inferolateral and inferior medium to large moderate to severe partially reversible defect. LVEF: 45%. Moderate inferior hypokinesia. DTS: -2 (Moderate risk) Stress Protocols Resting ECG RSR Pre-stress physical exam: Un changed. Predicted HR: 173 bpm ECG Findings No ECG changes suggestive of ischemia. Arrhythmias No rhythm abnormality. Symptoms Chest pressure. SOB. Stress Interpretation Duration: 6:01 mins. Achieved: 75% MPHR. DP: 29 K. METs: 7. Reason for termination: Chest pressure and SOB. EKG : No ischemia. No arrythmias. DTS: -2 (Moderate risk). Imaging Results High risk findings Summed scores - Summed stress score: 16 - Summed rest score: 4 - Summed difference score: 12 Stress ejection Ejection fraction:46 % EDV :204 ml ESV :111 ml Stroke volume :93 ml LV mass :179 gr LV size:Enlarged LV LV systolic function impairment: Mild Imaging Protocols Rest Stress Isotope dose:15.8 mCi Isotope dose:46.7 mCi Date:11/07/2016 07:28 Date:11/07/2016 11:35 Technique: SPECT Technique: Gated Supine SPECT Supine IV remains in place after procedure. Scan Time:45-60 minutes post Scan Time:45-60 minutes post injection injection Medical History Admission Data Admission date: 11/06/2016 Admission Time: 16:59 Hospital Status: Inpatient. Signatures dtt: Kenya Hermosillo dtd: 11/07/16 1102 Physician Self Edit
[~2016-11-06 16:59] MED LIST changes: +ASPIRIN LO-DOSE81 MG PO; +BRILINTA90 MG PO; +CRESTOR40 MG PO; +ISORDIL30 MG PO; +LISINOPRIL-HCT1 EAC1 PO; +NICODERM CQ1 EAC1 TRANS; +ULTRAM50 MG PO; +ZETIA10 MG PO
--- NOTE | 2016-11-06 17:33 | NUR ---
Pt is 46 y/o male admit for chest pain for . No allergies. Resides at home with his . Hx SD x3,htn,hypercholest,gout,polyps, stent,nocturia. Pt came via ambulance from [place] and states he felt miserable all weekend-nauseated. His chest pain started last evening around 9:30 PM and lasted until midnight. He didn't sleep well all night and had increase pressure in his chest all night and this am. He was advised by his family dr to go to ED.
[2016-11-06 19:26] LABS: BASOPHIL # 0.1 K/uL (0.0-0.2); BASOPHIL % 0.5 %; EOSINOPHIL # 0.3 K/uL (0.0-0.5); HEMATOCRIT 45.7 % (37.0-53.0); HEMOGLOBIN 15.3 g/dL (12.0-17.0); IMMATURE GRANULOCYTE # 0.1 K/uL (0.0-0.3); IMMATURE GRANULOCYTE % 0.4 %; LYMPHOCYTE # 1.9 K/uL (0.8-4.0); MCH 28.4 pg (27.0-34.0); MCHC 33.5 gm/dL (32.0-36.5); MCV 84.9 fl (83.0-98.0); MONOCYTE # 0.7 K/uL (0.0-1.0); MONOCYTE % 5.5 %; MPV 9.6 fl (9.4-12.4); NEUTROPHIL # (ANC) 9.9 K/uL (1.4-9.0); NEUTROPHIL % 76.6 %; NRBC % 0 /100WBC (0-0.00); PLATELET COUNT 273 K/uL (150-450); RBC 5.38 M/uL (4.00-6.00); RDW-CV 13.3 % (11.9-14.6); WBC 12.9 K/uL (4.0-11.0)
[2016-11-06 19:38] LABS: INR - (THERAPEUTIC) 0.94 (0.92-1.07); PROTIME 9.9 SECONDS (9.8-11.4)
--- NOTE | 2016-11-07 03:53 | NUR ---
A&Ox3. VSS on R/A. SBP pressure reached 170s, nitro drip initiated at 5mcg per min. On heparin drop per ACS protocol last PHHTP 28 at 0137. Next to be drawn at 0830. Stress test this AM. NPO after midnight. No c/o chest pain or SOB during NOC. Up with SBA. 2 IV to R) and L) hands. L) hand infusing IV. C/O of back pain. 2 Utram given at 0226. Resting quietly.
--- NOTE | 2016-11-07 10:34 | NUR ---
PT. BP WAS ELEVATED AT SHIFT CHANGE. PT RETURNED FROM EXRAY AND AGITATED ABOUT BEING WOKE UP. DR. Rodgers NOTIFIED. PT UP TO BR AND VOIDED. NITRO DRIP D/C'D PER STRESS TEST. ORAL MEDS GIVEN FOR BP AND PAIN MED FOR HEADACHE. BY 0830 BP WAS 147/91 AND HEAD ACHE GONE. PTTHP 32 WITH CONTINUOUS HEPARIN DRIP. LEFT FOR STRESS TEST AT 1030.
--- NOTE | 2016-11-07 12:41 | NUR ---
pt. returned from stress test at 1225, blood pressure is 199/102.
--- NOTE | 2016-11-07 15:31 | NUR ---
pt refused nitro drip post stress test. states give him a headache.
--- NOTE | 2016-11-07 17:28 | NUR ---
Significant Event:PT A/O AND COOPERATIVE. HYPERTENSION WITH ANXIETY. SBP UP TO 201/93 BUT SUBSIDED W/I 45 MINUTES AND PT REFUSED NITRO DRIP BECAUSE HE SAID IT GIVES HIM A HEADACHE. UP WITH STANDBY ASSIST AND VOIDS IN BR. STATES HAD A STOOL TODAY. HEPERIN DRIP GOING PER IV IN LEFT HAND. HAS S/L IN RIGHT HAND. EATING WELL. PLAN TO BE NPO AFTER 6AM BREAKFAST AND HAVE HEART CATH AT 1500. Follow up:
--- NOTE | 2016-11-08 03:32 | NUR ---
A&0x3. Up with stand by assist. Heparin gtt running at 1700. C/O back pain. Ultram 100mg given at 0308. Denies chest pain or SOB. Heart cath this afternoon NPO after 0600. Bilateral hand PIVs, flushing well, no blood return. Calm/cooperative with cares. Next PTTHP @ 0600. Last PTTHP 42. Consents for heart cath signed and in chart. BP reaches 170s. Has nitro as needed for SBP >180. BM yest. Resting quietly.
--- NOTE | 2016-11-08 11:14 | NUR ---
Introduced self and care management services to patient. Lives in [place] with . Denies anticipating dc planning needs. Reports he is without insurance, went back to work for a couple months after heart attack and then things started back downhill so unable to work right now. Reports he applied for medicaid and case is pending. I let Lyubov with Jodie know what. Will follow.
[2016-11-08 12:17] LABS: CREATININE 1.1 mg/dL (0.6-1.3)
--- NOTE | 2016-11-08 18:05 | NUR ---
A&Ox3. Heart cath this shift. Heparin gtt running at 1900. Nitro gtt started at 1251 for SBP>180, running at 15mcg/min. IVs to bilat hands. Lungs clear/dim. Denies chest pain, C/O back pain. Ultram 100mg given at 1045. Up stand by assist.
[2016-11-08 22:13] LABS: BASOPHIL # 0.1 K/uL (0.0-0.2); BASOPHIL % 0.7 %; EOSINOPHIL # 0.3 K/uL (0.0-0.5); EOSINOPHIL % 2.1 %; HEMATOCRIT 44.1 % (37.0-53.0); HEMOGLOBIN 14.9 g/dL (12.0-17.0); IMMATURE GRANULOCYTE # 0.1 K/uL (0.0-0.3); IMMATURE GRANULOCYTE % 0.4 %; LYMPHOCYTE # 1.8 K/uL (0.8-4.0); LYMPHOCYTE % 14.4 %; MCH 27.6 pg (27.0-34.0); MCHC 33.8 gm/dL (32.0-36.5); MCV 81.8 fl (83.0-98.0); MONOCYTE # 0.7 K/uL (0.0-1.0); MPV 9.4 fl (9.4-12.4); NEUTROPHIL # (ANC) 9.4 K/uL (1.4-9.0); NEUTROPHIL % 76.4 %; NRBC % 0 /100WBC (0-0.00); PLATELET COUNT 252 K/uL (150-450); RBC 5.39 M/uL (4.00-6.00); WBC 12.3 K/uL (4.0-11.0)
--- NOTE | 2016-11-09 04:55 | NUR ---
Significant Event: A/O, SBP 110-130s, afebrile, 2L applied while asleep for apneic episodes, on arrival from laborer gold leaf manual pressure was held to R)groin for 60 minutes, femstop then applied, site is soft/nontender, csm wnl, dressing c.d.i, femstop removed at 0200, agristat gtt off, Brilinta started, NS to continue until 0650, Ultram given x2 for back pain Follow up: home?
[2016-11-09 05:28] LABS: ALBUMIN 3.3 gm/dL (3.5-5.0); ANION GAP 10.4 (10.0-19.0); CALCIUM 9.6 mg/dL (8.5-10.5); CREATININE 1.2 mg/dL (0.6-1.3); POTASSIUM 4.4 mMol/L (3.7-5.1); TOTAL BILIRUBIN 0.3 mg/dL (0.0-1.5)
--- NOTE | 2016-11-09 18:49 | NUR ---
PATIENT DISMISSED TO HOME WITH PER PRIVATE AUTO. PATIENT TRANSFERED TO CAR BY RN. REVIEWED DISMISSAL INSTRUCTIONS WITH PATIENT, INCLUDING GROIN HEART CATH CARE INSTRUCTIONS, PATIENT VERBALIZED UNDERSTANDING. GAVE INFORMATION SHEET ON NEW MEDICATIONS, SMOKING CESSATION, HEART HEALTHY DIET.
== END 2016-11-09 16:50 | disposition disaster alternative care site (69) ==
LOC: GPCU 16:59
PROVIDERS: ADMIT Internal Medicine Interventional Cardiology
PROC: 027034Z Dilation of Coronary Artery, One Artery with Drug-eluting Intraluminal Device, Percutaneous Approach (ICD-10-PCS; principal; 2016-11-08)
PROC: B2111ZZ Fluoroscopy of Multiple Coronary Arteries using Low Osmolar Contrast (ICD-10-PCS; 2016-11-08)
PROC: B2151ZZ Fluoroscopy of Left Heart using Low Osmolar Contrast (ICD-10-PCS; 2016-11-08)
DX: I21.4 Non-ST elevation (NSTEMI) myocardial infarction (principal); I25.10 Atherosclerotic heart disease of native coronary artery without angina pectoris; T82.855A Stenosis of coronary artery stent, initial encounter; I10 Essential (primary) hypertension; M10.9 Gout, unspecified; G43.909 Migraine, unspecified, not intractable, without status migrainosus; H93.19 Tinnitus, unspecified ear; E66.01 Morbid (severe) obesity due to excess calories; Z68.41 Body mass index [BMI] 40.0-44.9, adult; Z79.82 Long term (current) use of aspirin; Z79.899 Other long term (current) drug therapy; Z79.891 Long term (current) use of opiate analgesic; Z86.010 Personal history of colon polyps
CPT/HCPCS: A9500; C1725; C1760; C1769; C1874; C1887; C8929; C9600; C9601; G0378; J0461; J1170; J1644; J2001; J2250; J2785; J3010; J3246; J7030; J7050; Q9957